=== PATIENT | male | born 1940 | race Caucasian/White ===

== ENCOUNTER 2017-05-10 20:09 | Emergency (ER) | payer MEDICARE, OTHER ==
[2016-02-25 10:49] VITALS: BMI 29.3
[~2017-05-10 20:09] MED LIST: BAYER CHEWABLE81 MG PO; FLOMAX0.4 MG PO; LEVAQUIN500 MG PO; LEVAQUIN750 MG PO; LEVEMIR100 U/M1 SC; MIRAPEX0.5 MG PO; MUCINEX600 MG PO; NEURONTIN 300300 MG PO; NOVOLOG100 U/M1 SC; PRAVACHOL20 MG PO; ZESTRIL10 MG PO
[2017-05-10 20:39] LABS: BASOPHILS 0.3 % (0-2); EOSINOPHILS 1.8 % (0-7); HEMOGLOBIN 14.9 g/dL (13.5-17.5); IMMATURE GRANULOCYTES 0.4 % (0-5); LYMPHOCYTES 18.7 % (15-50); MCH 29.8 pg (26.0-34.0); MCHC 34.7 g/dL (31.0-37.0); MEAN PLATELET VOLUME 9.8 fL (7.4-10.4); MONOCYTES 8.8 % (2-11); RDW 12.5 % (11.5-14.5); WBC 7.1 10x3/uL (4.8-10.8)
[2017-05-10 20:42] LABS: PLATELET COUNT 143 10x3/uL (130-400)
[2017-05-10 20:45] LABS: INR 0.97 (0.85-1.17); PROTIME 12.7 SECONDS (11.6-15.0)
[2017-05-10 20:51] LABS: ALBUMIN 3.8 g/dL (3.4-5.0); ALKALINE PHOSPHATASE 86 U/L (46-116); ALT (SGPT) 26 U/L (10-68); CALC OSMOLALITY 273 mosm/kg (275-300); CALCIUM 8.8 mg/dL (8.5-10.1); CARBON DIOXIDE 24.8 mmol/L (21.0-32.0); CHLORIDE - SERUM 99 mmol/L (98-107); CREATININE - SERUM 0.7 mg/dL (0.6-1.3); POTASSIUM - SERUM 3.7 mmol/L (3.5-5.1); PROTEIN - SERUM 6.9 g/dL (6.4-8.2); SODIUM 135 mmol/L (136-145); UREA NITROGEN 13 mg/dL (7-18); eGFR NON AFRICAN AMERICAN > 90 mL/min (90-120)
[2017-05-10 20:56] LABS: GLUCOSE 177 mg/dL (74-106)
[2017-05-10 21:10] LABS: CREATINE KINASE 237 UL (21-232); MAGNESIUM - SERUM 1.7 mg/dL (1.8-2.4)
== END 2017-05-10 23:41 | disposition other institution (70) ==
LOC: D.ER 20:09
PROVIDERS: Emergency Medicine
DX: S06.5X0A Traumatic subdural hemorrhage without loss of consciousness, initial encounter (principal); X58.XXXA Exposure to other specified factors, initial encounter; Y93.89 Activity, other specified; Y92.89 Other specified places as the place of occurrence of the external cause; E83.42 Hypomagnesemia; E11.9 Type 2 diabetes mellitus without complications; Z79.4 Long term (current) use of insulin; I10 Essential (primary) hypertension; I45.10 Unspecified right bundle-branch block; R26.2 Difficulty in walking, not elsewhere classified